=== PATIENT | male | born 1995 | race Caucasian/White ===

== ENCOUNTER 2017-03-23 11:16 | Emergency (ER) | payer MEDICAID | END 2017-03-23 21:26 | DX: F32.9 Major depressive disorder, single episode, unspecified (principal); R45.851 Suicidal ideations; R45.850 Homicidal ideations ==

== ENCOUNTER 2017-07-20 22:38 | Emergency (ER) | payer MEDICAID | END 2017-07-20 23:00 | disposition left against medical advice (07) | LOC: ED 22:38 | DX: Z53.21 Procedure and treatment not carried out due to patient leaving prior to being seen by health care provider (principal) | CPT/HCPCS: 96372; 99284 ==

== ENCOUNTER 2017-08-24 02:04 | Emergency (ER) | payer MEDICAID ==
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
[2017-08-24 02:49] LABS: BASOPHILS % (AUTO) 0.8 %; EOSINOPHILS % (AUTO) 0.9 %; HCT - HEMATOCRIT 45.4 % (42.0-52.0); HGB - HEMOGLOBIN 15.5 g/dL (14.0-18.0); LYMPHOCYTES % (AUTO) 48.3 %; MEAN CORPUSCULAR HGB CONC 34.1 g/dL (32.0-36.0); MEAN PLATELET VOLUME 8.9 fL (7.4-11.4); MONOCYTES % (AUTO) 7.1 %; NEUTROPHILS % (AUTO) 42.9 %; RED BLOOD COUNT 4.99 10^6/uL (4.70-6.10); RED CELL DISTRIBUTION WIDTH 12.7 % (12.0-15.0); UNCORRECTED WHITE BLOOD COUNT 11.2 x10^3/uL; WHITE BLOOD COUNT 11.2 x10^3/uL (4.8-10.8)
[2017-08-24 03:04] LABS: ALBUMIN/GLOBULIN RATIO 1.3 (1.0-2.2); BILIRUBIN,TOTAL 0.5 mg/dL (0.2-1.0); BUN - BLOOD UREA NITROGEN 17 mg/dL (6-20); CALCIUM 9.3 mg/dL (8.5-10.3); CARBON DIOXIDE - CO2 22 mmol/L (21-32); CHLORIDE 106 mmol/L (101-111); CREATININE 0.8 mg/dL (0.6-1.2); GFR - MDRD 122 (>89); GLUCOSE 105 mg/dL (70-100); LIPASE 29 U/L (22-51); POTASSIUM 3.6 mmol/L (3.5-5.0); SALICYLATE < 6.0 mg/dL; SODIUM 140 mmol/L (135-145); TOTAL PROTEIN 8.5 g/dL (6.7-8.2)
[2017-08-24 03:05] LABS: ACETAMINOPHEN < 10 ug/mL (10-30)
[2017-08-24 03:13] LABS: BAND NEUTROPHILS % (MANUAL) 9 %; BASOPHILS % (MANUAL) 1 %; EOSINOPHILS % (MANUAL) 2 %; LYMPHOCYTES % (MANUAL) 19 %; NEUTROPHILS % (MANUAL) 40 %; NP AUTO DIFFERENTIAL? YES; NP MAN DIFFERENTIAL? NO; PLATELET ESTIMATE, MANUAL NORMAL (130-450,000) (NORMAL); TOTAL CELLS COUNTED 100
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
[2017-08-24] MEDS ORDERED: LORazepam 0.5 MG TABLET PO STA (09:04)
[2017-08-24] MEDS ORDERED: LORazepam 0.5 MG TABLET ONE (09:10)
[2017-08-24 10:39] VITALS: BP 126/77
== END 2017-08-24 11:29 | disposition left against medical advice (07) ==
LOC: ED 02:04
DX: R45.851 Suicidal ideations (principal); F32.9 Major depressive disorder, single episode, unspecified
CPT/HCPCS: 36415; 80053; 80306; 80307; 80320; 80329; 83690; 84443; 85025; 99283; 99285; A9270

== ENCOUNTER 2018-05-09 22:41 | Outpatient (CLI) | payer MEDICAID, OTHER | END 2018-05-09 22:42 | disposition home or self-care (01) | LOC: LAB 22:41 | PROVIDERS: ATTEND Pathology Blood Banking & Transfusion Medicine | DX: Z01.89 Encounter for other specified special examinations (principal) | CPT/HCPCS: 36415 ==

== ENCOUNTER 2018-07-30 15:03 | Emergency (ER) | payer MEDICAID ==
[2018-07-30 15:20] VITALS: BP 102/68
[2018-07-30] MEDS ORDERED: HYDROcod/ACETAM 5/325 MG TABLET PO STA (15:58)
--- NOTE | 2018-07-30 16:00 | ED Physician Documentation ---
PD HPI HEENT - Stated complaint Stated Complaint: TOOTH PX - Chief complaint Chief Complaint: Heent - History obtained from History obtained from: Patient - History of Present Illness Timing - onset: Other (Progressively painful dental cavity from a right mandibular molar for the last few months. No recent dental appointment but has an upcoming appointment but it is not for some time. No fevers but he does have a headache with it and facial pain.) Review of Systems Constitutional: denies: Fever, Chills GI: denies: Abdominal Pain, Nausea, Vomiting : reports: Reviewed and negative PD PAST MEDICAL HISTORY - Past Surgical History Past Surgical History: No - Present Medications Home Medications: Ambulatory Orders Medication Instructions Recorded Confirmed Amoxicillin 500 mg PO TID #30 capsule 07/30/18 Hydrocodone/Acetaminophen 1 - 2 each PO Q6H PRN #14 tablet 07/30/18 [Hydrocodon-Acetaminophen 5-325] Ibuprofen [Motrin] 800 mg PO Q8H PRN #30 tablet 07/30/18 - Allergies Allergies/Adverse Reactions: Allergies Allergy/AdvReac Type Severity Reaction Status Date / Time No Known Drug Allergies Allergy Verified 08/24/17 02:14 - Social History Does the pt smoke?: No Smoking Status: Never smoker Does the pt drink ETOH?: Yes Does the pt have substance abuse?: Yes - Immunizations Immunizations are current?: Yes PD ED PE NORMAL - Vitals Vital signs reviewed: Yes - General General: Alert and oriented X 3, No acute distress - HEENT HEENT: Other (There is a moderate cavity from the first mandibular molar on the anterior surface. It is tender but there is no facial swelling, trismus, or sublingual edema.) - Neck Neck: Supple, no meningeal sign, No bony TTP - Neuro Neuro: Alert and oriented X 3, Normal speech Results - Vitals Vitals: Vital Signs - 24 hr 07/30/18 15:15 Temperature 36.7 C Heart Rate 78 Respiratory 16 Rate Blood Pressure 102/68 O2 Saturation 98 Oxygen O2 Source Room air PD MEDICAL DECISION MAKING - Sepsis Event Vital Signs: Vital Signs - 24 hr 07/30/18 15:15 Temperature 36.7 C Heart Rate 78 Respiratory 16 Rate Blood Pressure 102/68 O2 Saturation 98 Oxygen O2 Source Room air Departure - Departure Disposition: 01 Home, Self Care Clinical Impression: Pain due to dental caries Condition: Good Record reviewed to determine appropriate education?: Yes Instructions: ED Tooth Pain Prescriptions: Amoxicillin 500 mg PO TID #30 capsule Hydrocodone/Acetaminophen [Hydrocodon-Acetaminophen 5-325] 1 - 2 each PO Q6H PRN #14 tablet PRN Reason: pain Ibuprofen [Motrin] 800 mg PO Q8H PRN #30 tablet PRN Reason: PAIN &/OR FEVER Comments: It is very important that you follow-up with a dentist. When it comes to dental problems like yours, the emergency department can only offer a short- term solution to your long-term problem. A couple of low cost options for dental care include: [facility] in [place], calls [phone] for an appointment Or [facility] in [place], call [phone] for an appointment. Do not drink or drive while taking narcotic pain medication. Note that many narcotic pain relievers also contain Tylenol/acetaminophen. Please ensure that your total dose of acetaminophen from all sources does not exceed 3 g (3000 mg) per day. You may get constipated while on this medication. Take a stool softener such as Colace twice a day while you are on it. Also add an [id number] laxative such as senna or MiraLAX on any day that you do not have a bowel movement. If you received a narcotic pain medication or sedative while in the emergency department, do not drive for the next 24 hours.
== END 2018-07-30 16:17 | disposition home or self-care (01) ==
LOC: ED 15:03
DX: K02.9 Dental caries, unspecified (principal)
CPT/HCPCS: 99283; A9270

== ENCOUNTER 2018-12-19 05:50 | Emergency (ER) | payer MEDICAID ==
--- NOTE | 2018-12-19 05:59 | ED Physician Documentation ---
PD HPI HEENT - Stated complaint Stated Complaint: DENTAL PAIN - Chief complaint Chief Complaint: Heent - History obtained from History obtained from: Patient - History of Present Illness Timing - onset: How many days ago Timing - duration: Days Timing - details: Gradual onset, Still present, Waxing and waning Location: Tooth (right lower) Associated symptoms: No: Fever, Congestion, Swollen nodes Similar symptoms before: Diagnosis (has cavity with pain in the past. Had tried to get appt with Dentist, but was given one not until December. Finally is getting close to time of his appt but is having increased pain of it again.) Review of Systems Constitutional: denies: Fever, Chills, Myalgias Nose: denies: Rhinorrhea / runny nose, Congestion Throat: reports: Dental pain / toothache. denies: Oral lesions / sores, Sore throat Respiratory: denies: Cough PD PAST MEDICAL HISTORY - Past Medical History Past Medical History: No - Past Surgical History Past Surgical History: No - Present Medications Home Medications: Ambulatory Orders Medication Instructions Recorded Confirmed Ondansetron Odt [Zofran] 4 mg TL Q6H PRN #10 tablet 12/19/18 RX: Doxycycline Hyclate 100 mg PO BID #14 capsule 12/19/18 RX: Naproxen 375 mg PO BID #20 tablet 12/19/18 RX: Tramadol HCl 50 mg PO Q6H PRN #15 tablet 12/19/18 - Allergies Allergies/Adverse Reactions: Allergies Allergy/AdvReac Type Severity Reaction Status Date / Time No Known Drug Allergies Allergy Verified 12/19/18 05:55 - Social History Does the pt smoke?: No Smoking Status: Never smoker Does the pt drink ETOH?: Yes Does the pt have substance abuse?: Yes - Immunizations Immunizations are current?: Yes - POLST Patient has POLST: No PD ED PE NORMAL - Vitals Vital signs reviewed: Yes - General General: Alert and oriented X 3, No acute distress, Well developed/nourished - HEENT HEENT: Ears normal, Pharynx benign. No: Dentition benign (notable large cavity right lower tooth, with cup shape defect to it. Amenable to Cavit, and I placed some in it. Slight swelling of the gumline. No fluctuance nor drainage. ) - Neck Neck: Supple, no meningeal sign, No adenopathy Results - Vitals Vitals: Vital Signs - 24 hr 12/19/18 05:50 Temperature 36.7 C Heart Rate 66 Respiratory 18 Rate Blood Pressure 141/86 H O2 Saturation 100 Oxygen O2 Source Room air PD MEDICAL DECISION MAKING - ED course Complexity details: considered differential, d/w patient Departure - Departure Disposition: 01 Home, Self Care Clinical Impression: Pain due to dental caries Condition: Stable Record reviewed to determine appropriate education?: Yes Instructions: ED Tooth Pain Prescriptions: RX: Doxycycline Hyclate 100 mg PO BID #14 capsule RX: Naproxen 375 mg PO BID #20 tablet Ondansetron Odt [Zofran] 4 mg TL Q6H PRN #10 tablet PRN Reason: Nausea / Vomiting RX: Tramadol HCl 50 mg PO Q6H PRN #15 tablet PRN Reason: Pain Comments: No chewing on that side. Try to leave the temporary filling in place. Naproxen anti-inflammatory twice daily with food. Doxycycline antibiotic as directed. Add tramadol if needed for pain. Use ondansetron if needed for nausea. Follow- up with a dentist in a week as planned. Discharge Date/Time: 12/19/18 06:46
[2018-12-19 06:02] VITALS: BP 141/86
[2018-12-19] MEDS ORDERED: DOXYCYCLINE 100 MG TABLET PO STA (06:25)
[2018-12-19] MEDS ORDERED: ONDANSETRON ODT 4 MG TABLET TL STA (06:25)
[2018-12-19] MEDS ORDERED: traMADol 50 MG TABLET PO STA (06:25)
[2018-12-19] MEDS ORDERED: NAPROXEN 250 MG TABLET PO STA (06:25)
== END 2018-12-19 06:46 | disposition home or self-care (01) ==
LOC: ED 05:50
DX: K02.9 Dental caries, unspecified (principal)
CPT/HCPCS: 99283; A9270; Q0162

== ENCOUNTER 2018-12-28 06:15 | Emergency (ER) | payer MEDICAID ==
[2018-12-28 06:23] VITALS: BP 146/76
--- NOTE | 2018-12-28 06:25 | ED Physician Documentation ---
PD HPI SKIN - Stated complaint Stated Complaint: RASH - Chief complaint Chief Complaint: Wound - History obtained from History obtained from: Patient - History of Present Illness Timing - onset: How many weeks ago (2-3) Timing - duration: Weeks Timing - details: Gradual onset Pain level max: 0 Pain level now: 0 Location: RUE, LUE, Other (proximal thighs) Associated symptoms: No: Fever, Myalgias, Joint pain, Headache, Facial swelling, Dyspnea, Abd pain, N/V/D, Urinary sx Contributing factors: Unknown Similar symptoms before: Has not had sx before Recently seen: Not recently seen Review of Systems Constitutional: denies: Fever Skin: reports: Rash PD PAST MEDICAL HISTORY - Past Medical History Past Medical History: No - Past Surgical History Past Surgical History: No - Present Medications Home Medications: Ambulatory Orders Medication Instructions Recorded Confirmed Doxycycline Hyclate 100 mg PO BID #14 capsule 12/19/18 Naproxen 375 mg PO BID #20 tablet 12/19/18 Ondansetron Odt [Zofran] 4 mg TL Q6H PRN #10 tablet 12/19/18 Tramadol HCl 50 mg PO Q6H PRN #15 tablet 12/19/18 Triamcinolone 0.1% Cream [Kenalog 1 film TOP BID #1 tube 12/28/18 0.1% Cream] predniSONE [Prednisone] 40 mg PO DAILY 5 Days #10 tablet 12/28/18 - Allergies Allergies/Adverse Reactions: Allergies Allergy/AdvReac Type Severity Reaction Status Date / Time No Known Drug Allergies Allergy Verified 12/28/18 06:20 - Social History Does the pt smoke?: No Smoking Status: Never smoker Does the pt drink ETOH?: Yes Does the pt have substance abuse?: Yes - Immunizations Immunizations are current?: Yes - POLST Patient has POLST: No PD ED PE NORMAL - Vitals Vital signs reviewed: Yes - General General: Alert and oriented X 3, No acute distress, Well developed/nourished PD ED PE EXPANDED - Derm Derm: Rash (papular erythematous exanthem in clusters bilateral proximal medial upper arms with patch on either side of lateral chest wall in area that correlates with where the upper arm tocuhes the chest when adducted. fewer, scattered and less discrete lesions on bilateral proximal thighs) Results - Vitals Vitals: Vital Signs - 24 hr 12/28/18 06:17 Temperature 36.3 C L Heart Rate 87 Respiratory 16 Rate Blood Pressure 146/76 H O2 Saturation 99 Oxygen O2 Source Room air PD MEDICAL DECISION MAKING - ED course Complexity details: considered differential, d/w patient Departure - Departure Disposition: 01 Home, Self Care Clinical Impression: Rash Condition: Good Instructions: ED Dermatitis Non Specific Rash Prescriptions: predniSONE [Prednisone] 40 mg PO DAILY 5 Days #10 tablet Triamcinolone 0.1% Cream [Kenalog 0.1% Cream] 1 film TOP BID #1 tube Discharge Date/Time: 12/28/18 07:41
== END 2018-12-28 07:41 | disposition home or self-care (01) ==
LOC: ED 06:15
DX: R21 Rash and other nonspecific skin eruption (principal)
CPT/HCPCS: 99283

== ENCOUNTER 2019-04-14 10:23 | Emergency (ER) | payer MEDICAID ==
[2019-04-14 10:32] VITALS: BP 142/72
[2019-04-14] MEDS ORDERED: PENICILLIN VK 250 MG TABLET PO STA (10:52)
[2019-04-14] MEDS ORDERED: oxyCODONE 5 MG TABLET PO STA (10:52)
[2019-04-14] MEDS ORDERED: ONDANSETRON ODT 4 MG TABLET TL STA (10:52)
--- NOTE | 2019-04-14 10:58 | ED Physician Documentation ---
History of Present Illness - Stated complaint Stated Complaint: TOOTH PX - Chief complaint Chief Complaint: Heent - History obtained from History obtained from: Patient - History of Present Illness Timing: How many days ago (several) Pain level max: 10 Pain level now: 10 - Additonal information Additional information: 23-year-old male with right lower molar pain. This been ongoing for several weeks. He was told that he needs a root canal, but his dentist does not perform these. Is looking for another dentist. Increased pain over the past few days. Is not on antibiotics. No fevers. Worse with eating. Nothing makes it better. Review of Systems Constitutional: denies: Fever, Chills Respiratory: denies: Cough GI: denies: Vomiting Skin: denies: Rash PD PAST MEDICAL HISTORY - Past Medical History Past Medical History: No - Past Surgical History Past Surgical History: No - Present Medications Home Medications: Ambulatory Orders Medication Instructions Recorded Confirmed Ondansetron Odt [Zofran] 4 mg TL Q6H PRN #10 tablet 04/14/19 Oxycodone HCl/Acetaminophen 1 - 2 each PO Q6H PRN #14 tablet 04/14/19 [Percocet 5-325 mg Tablet] Penicillin V Potassium 500 mg PO Q6HR #40 tablet 04/14/19 - Allergies Allergies/Adverse Reactions: Allergies Allergy/AdvReac Type Severity Reaction Status Date / Time No Known Drug Allergies Allergy Verified 04/14/19 10:29 - Social History Does the pt smoke?: No Smoking Status: Never smoker Does the pt drink ETOH?: Yes Does the pt have substance abuse?: Yes - Immunizations Immunizations are current?: Yes - POLST Patient has POLST: No PD ED PE NORMAL - Vitals Vital signs reviewed: Yes - General General: Alert and oriented X 3, No acute distress, Well developed/nourished - HEENT HEENT: PERRL, Ears normal, Moist mucous membranes, Other (R lower molar - TTP, no drainable abscess. no ludwigs. no facial cellulitis. ) - Neck Neck: Supple, no meningeal sign - Cardiac Cardiac: RRR - Respiratory Respiratory: No respiratory distress, Clear bilaterally - Abdomen Abdomen: Soft, Non tender, Non distended - Derm Derm: Warm and dry - Neuro Neuro: Alert and oriented X 3 - Psych Psych: Normal mood, Normal affect Results - Vitals Vitals: Vital Signs - 24 hr 04/14/19 10:28 Temperature 36.5 C Heart Rate 53 L Respiratory 14 Rate Blood Pressure 142/72 H O2 Saturation 99 Oxygen O2 Source Room air PD MEDICAL DECISION MAKING - ED course Complexity details: considered differential, d/w patient ED course: 23-year-old male with a dental infection. No abscess. Will place on antibiotics and pain meds. We will follow-up with his dentist for further care. Patient counseled regarding signs and symptoms for which I believe and urgent re-evaluation would be necessary. Patient with good understanding of and agreement to plan and is comfortable going home at this time This document was made in part using voice recognition software. While efforts are made to proofread this document, sound alike and grammatical errors may occur. Departure - Departure Disposition: 01 Home, Self Care Clinical Impression: Pain due to dental caries Condition: Good Instructions: ED Tooth Pain Follow-Up: your,doctor in 1 week [Other] Prescriptions: Penicillin V Potassium 500 mg PO Q6HR #40 tablet Ondansetron Odt [Zofran] 4 mg TL Q6H PRN #10 tablet PRN Reason: Nausea / Vomiting Oxycodone HCl/Acetaminophen [Percocet 5-325 mg Tablet] 1 - 2 each PO Q6H PRN #14 tablet PRN Reason: pain Comments: Return if you worsen. Take all antibiotics until gone. Do not drink alcohol or drive while on narcotic pain medicine. Note that many narcotic pain relievers also contain tylenol/acetaminophen. Please ensure that your total dose of acetaminophen from all sources does not exceed 3 grams (3000mg) per day. You may constipated on this medication, take a stool softener such as "Colace" twice a day while you are on it. Also recommend a ycju-qxo-abrqraq laxative such as senna or MiraLAX any day that you do not have a bowel movement. If you received narcotic pain medication in the emergency department, do not drive or operate machinery for the next 24 hours. Discharge Date/Time: 04/14/19 11:05
== END 2019-04-14 11:05 | disposition home or self-care (01) ==
LOC: ED 10:23
DX: K04.7 Periapical abscess without sinus (principal); K02.9 Dental caries, unspecified
CPT/HCPCS: 99283; A9270; Q0162

== ENCOUNTER 2019-12-08 07:24 | Outpatient (CLI) | payer OTHER, MEDICAID | END 2019-12-08 07:25 | disposition home or self-care (01) | LOC: LAB 07:24 | PROVIDERS: ATTEND Pathology Blood Banking & Transfusion Medicine | DX: Z01.89 Encounter for other specified special examinations (principal) | CPT/HCPCS: 36415 ==

== ENCOUNTER 2020-10-25 10:17 | Emergency (ER) | payer MEDICAID, OTHER ==
[2020-10-25 10:26] VITALS: BP 148/86
--- NOTE | 2020-10-25 11:20 | XRAY Report ---
PROCEDURE: Knee 3 View RT INDICATIONS: fall off truck/Inability to bend knee r/t pain TECHNIQUE: 3 views of the right knee(s) were acquired. COMPARISON: None. FINDINGS: Bones: On the lateral view, there is a potential chip fracture seen along the anterior superior aspe ct of the tibial plateau. No additional fractures or dislocations. No suspicious bony lesions. Soft tissues: There is a small to moderate joint effusion. No suspicious soft tissue calcifications. IMPRESSION: Potential chip fracture seen on one image only. Moderate joint effusion. If clinically appropriate, please consider a follow-up knee CT for further evaluation. Reviewed by: Taco Hu MD on 10/25/2020 10:19 AM [facility] Approved by: Taco Hu MD on 10/25/2020 10:19 AM [facility] Station ID: [id number]
--- NOTE | 2020-10-25 16:44 | ED Physician Documentation ---
History of Present Illness - Stated complaint Stated Complaint: RT KNEE PX - Chief complaint Chief Complaint: Ext Problem - History obtained from History obtained from: Patient - Additonal information Additional information: 25-year-old, previously healthy presents with right knee pain, sudden onset after falling from a truck bed on Monday onto the knee, constant, aching, nonradiating, worse with movement. Patient is able to bear weight but noticed some swelling in the knee with bruising. No fevers, no sensory or motor deficits. No other symptoms Review of Systems Constitutional: denies: Fever, Chills Skin: reports: Abrasion (s) Musculoskeletal: reports: Extremity pain, Joint pain PD PAST MEDICAL HISTORY - Past Medical History Past Medical History: No - Past Surgical History Past Surgical History: No - Present Medications Home Medications: Ambulatory Orders Medication Instructions Recorded Confirmed Ondansetron Odt [Zofran] 4 mg TL Q6H PRN #10 tablet 04/14/19 Oxycodone HCl/Acetaminophen 1 - 2 each PO Q6H PRN #14 tablet 04/14/19 [Percocet 5-325 mg Tablet] Penicillin V Potassium 500 mg PO Q6HR #40 tablet 04/14/19 - Allergies Allergies/Adverse Reactions: Allergies Allergy/AdvReac Type Severity Reaction Status Date / Time No Known Drug Allergies Allergy Verified 04/14/19 10:29 - Social History Does the pt smoke?: No Smoking Status: Never smoker Does the pt drink ETOH?: Yes Does the pt have substance abuse?: Yes - Immunizations Immunizations are current?: Yes - POLST Patient has POLST: No PD ED PE NORMAL - Vitals Vital signs reviewed: Yes - General General: Alert and oriented X 3 - HEENT HEENT: Atraumatic, PERRL, EOMI - Derm Derm: Other (Ecchymosis and mild swelling to right knee) - Extremities Extremities: Other (Pain with range of motion of right knee. Full range of motion. sensory And motor intact distally. 2+ distal pulses) - Psych Psych: Normal mood, Normal affect Results - Vitals Vitals: Vital Signs - 24 hr 10/25/20 10:24 Temperature 36.7 C Heart Rate 70 Respiratory 16 Rate Blood Pressure 148/86 H O2 Saturation 99 Oxygen O2 Source Room air PD MEDICAL DECISION MAKING - ED course Complexity details: reviewed results, d/w patient ED course: 25-year-old man presents with right knee effusion and possible chip fracture. Knee immobilizer placed and he will follow up with orthopedics in 1 week. Crutches given. Return precautions given Departure - Departure Disposition: 01 Home, Self Care Clinical Impression: Knee effusion, right, Knee pain Condition: Stable Instructions: ED RICE Follow-Up: Adam Infante MD [Provider Admit Priv/Credential] - Comments: You have been seen in the emergency department for knee pain. It looks like there is some swelling in the knee on x-ray, but no break in the bone. It is important for you to follow-up with orthopedics in 1 week. Wear the knee immobilizer and use crutches until then. I will write a note for work.Return to the ED for any new or worsening symptoms. Discharge Date/Time: 10/25/20 11:55
== END 2020-10-25 11:55 | disposition home or self-care (01) ==
LOC: ED 10:17
DX: M25.461 Effusion, right knee (principal); W22.8XXA Striking against or struck by other objects, initial encounter
CPT/HCPCS: 99283; 99284

== ENCOUNTER 2021-02-11 09:14 | Emergency (ER) | payer OTHER ==
[2021-02-11 09:23] VITALS: BP 149/93
--- NOTE | 2021-02-11 09:31 | ED Physician Documentation ---
History of Present Illness - Stated complaint Stated Complaint: SWELLING FINGER - Chief complaint Chief Complaint: Ext Problem - History obtained from History obtained from: Patient - Additonal information Additional information: 25-year-old man presents with hangnail that has progressively worsened over the past couple days so that it was throbbing last night and now feels swollen. Denies other complaints. Normal sensation and movement. Review of Systems Constitutional: denies: Fever, Chills Skin: reports: Other (+finger swelling). denies: Laceration (s) Musculoskeletal: reports: Extremity pain. denies: Joint pain PD PAST MEDICAL HISTORY - Past Surgical History Past Surgical History: No - Present Medications Home Medications: Ambulatory Orders Medication Instructions Recorded Confirmed Ondansetron Odt [Zofran] 4 mg TL Q6H PRN #10 tablet 04/14/19 Oxycodone HCl/Acetaminophen 1 - 2 each PO Q6H PRN #14 tablet 04/14/19 [Percocet 5-325 mg Tablet] Penicillin V Potassium 500 mg PO Q6HR #40 tablet 04/14/19 cephALEXin [Keflex] 250 mg PO Q6H 3 Days #12 tab 02/11/21 - Allergies Allergies/Adverse Reactions: Allergies Allergy/AdvReac Type Severity Reaction Status Date / Time No Known Drug Allergies Allergy Verified 04/14/19 10:29 - Social History Does the pt smoke?: No Smoking Status: Never smoker Does the pt drink ETOH?: Yes Does the pt have substance abuse?: Yes - Immunizations Immunizations are current?: Yes - POLST Patient has POLST: No PD ED PE NORMAL - Vitals Vital signs reviewed: Yes - General General: Alert and oriented X 3, No acute distress - Derm Derm: Normal color, Other (+hangnail with surrounding mild erythema/swelling of 3rd digit L hand at lateral aspect without fluctuance) - Extremities Extremities: No deformity, Normal ROM s pain - Neuro Neuro: Alert and oriented X 3 Results - Vitals Vitals: Vital Signs - 24 hr 02/11/21 09:17 Temperature 36.7 C Heart Rate 60 Respiratory 17 Rate Blood Pressure 149/93 H O2 Saturation 96 Oxygen O2 Source Room air Procedures - Abscess I&D (location) Finger left Dorsal Preparation: Alcohol Incision: Incised with scalpel, Other (paronychia of L third finger with mild swelling. gently lifted flaps along lateral aspect of nailbed to allow drainage. mild discharge noted.) Other: Pt tolerated well, Dressing applied PD MEDICAL DECISION MAKING - ED course Complexity details: d/w patient ED course: 25-year-old man presents with beginnings of a mild paronychia. I incised with a 11 blade gently along the lateral aspect of the nailbed in order to create a tract and then advised him to do hot soaking with warm soapy water in order to resolve the issue. He was worried about infection continuing so I gave him a prescription for Keflex that he will take if he does not have resolution within a few days. Strict return precautions given. Patient will follow up with his primary doctor. Departure - Departure Disposition: Home, Self Care Clinical Impression: Paronychia Condition: Good Instructions: ED Fingernail Infec Prescriptions: cephALEXin [Keflex] 250 mg PO Q6H 3 Days #12 tab Comments: You were seen in the emergency department for mild hangnail infection, also called a paronychia. Please soak your finger in hot soapy water for at least an hour every other hour today and tomorrow. This should help the infection r esolve. Take ibuprofen 600 mg every 6 hours as needed for pain. Return to the emergency department if you have any new or worsening symptoms or other concerns. You can also go to urgent care. You can take the antibiotics as prescribed if you do not have improvement after doing warm soaks for 2 days.
== END 2021-02-11 09:48 | disposition home or self-care (01) ==
LOC: ED 09:14
DX: L03.012 Cellulitis of left finger (principal)
CPT/HCPCS: 26010

== ENCOUNTER 2021-02-12 15:18 | Emergency (ER) | payer OTHER ==
[2021-02-12] MEDS ORDERED: ROPIVACAINE 0.5% PF 20 ML AMPULE SUBQ STA (15:47)
[2021-02-12] MEDS ORDERED: HYDROcod/ACETAM 5/325 MG TABLET PO STA (15:47)
[2021-02-12] MEDS ORDERED: cephALEXin 250 MG CAPSULE PO STA (15:47)
[2021-02-12] MEDS ORDERED: SULFAMETH/TRIMETH DS 800/160 MG TABLET PO STA (15:47)
--- NOTE | 2021-02-12 17:16 | XRAY Report ---
PROCEDURE: Finger(s) LT INDICATIONS: L finger felon TECHNIQUE: AP hand, 2 views of the third finger(s) acquired. COMPARISON: None FINDINGS: Bones: No acute fracture or dislocation. No bony erosive changes are seen in third finger. There is deformity involving proximal to mid shaft of fourth middle phalanx with suggestion of mixed lytic and sclerotic lesion within posterior and medial aspect of proximal fourth middle phalangeal shaft and m easures approximately 9 x 6 x 7 mm in size. No overlying cortical disruption or periosteal reaction i s seen. No suspicious bony lesions. Soft tissues: No suspicious soft tissue calcifications. IMPRESSION: 1. No third finger fracture or dislocation. No bony erosive changes. 2. Incidentally noted of benign-appearing expansile lesion involving dorsal and medial cortex of four th middle phalangeal shaft and may represent benign process such as fibrous dysplasia or enchondroma. Radiographic follow-up is recommended. If indicated, nonemergent MR of finger can be done for furthe r evaluation of the fourth middle phalanx. Reviewed by: Jordi Reardon MD on 02/12/2021 5:14 PM PDT Approved by: Jordi Reardon MD on 02/12/2021 5:14 PM PDT Station ID: [id number]
--- NOTE | 2021-02-12 17:19 | ED Physician Documentation ---
History of Present Illness - Stated complaint Stated Complaint: LT FINGER INFECTION - Chief complaint Chief Complaint: Ext Problem - History obtained from History obtained from: Patient - History of Present Illness Timing: Today Pain level max: 7 Pain level now: 7 - Additonal information Additional information: 25-year-old male with pain to the left middle finger. Seen here yesterday and had an incision and drainage For a paronychia. States the pain is worse today, has not yet started the antibiotics. Worse with any palpation, better with rest. Review of Systems Constitutional: denies: Fever, Chills GI: denies: Vomiting Skin: denies: Rash Neurologic: denies: Headache PD PAST MEDICAL HISTORY - Past Medical History Past Medical History: Yes Cardiovascular: None Respiratory: None Neuro: None Endocrine/Autoimmune: None GI: GERD : None HEENT: None Psych: Anxiety Musculoskeletal: None Derm: None - Past Surgical History Past Surgical History: No - Present Medications Home Medications: Ambulatory Orders Medication Instructions Recorded Confirmed Ondansetron Odt [Zofran] 4 mg TL Q6H PRN #10 tablet 04/14/19 Oxycodone HCl/Acetaminophen 1 - 2 each PO Q6H PRN #14 tablet 04/14/19 [Percocet 5-325 mg Tablet] Penicillin V Potassium 500 mg PO Q6HR #40 tablet 04/14/19 cephALEXin [Keflex] 250 mg PO Q6H 3 Days #12 tab 02/11/21 Sulfamethox/Trimeth 800/160 1 each PO BID #14 tablet 02/12/21 [Bactrim Ds 800/160] cephALEXin [Keflex] 500 mg PO Q6H #20 cap 02/12/21 - Allergies Allergies/Adverse Reactions: Allergies Allergy/AdvReac Type Severity Reaction Status Date / Time hydrocodone AdvReac Emesis Verified 02/12/21 16:20 - Social History Does the pt smoke?: No Smoking Status: Never smoker Does the pt drink ETOH?: Yes Does the pt have substance abuse?: Yes - Immunizations Immunizations are current?: Yes - POLST Patient has POLST: No PD ED PE NORMAL - Vitals Vital signs reviewed: Yes - General General: Alert and oriented X 3, No acute distress - HEENT HEENT: Moist mucous membranes - Neck Neck: Supple, no meningeal sign - Cardiac Cardiac: RRR - Respiratory Respiratory: No respiratory distress, Clear bilaterally - Derm Derm: Warm and dry - Extremities Extremities: Other (Patient with pain and swelling to the left middle finger, distal phalanx, circumferential and especially over the pulp of the finger) - Neuro Neuro: Alert and oriented X 3 Results - Vitals Vitals: Vital Signs - 24 hr 02/12/21 02/12/21 15:32 17:28 Temperature 36.6 C 36.6 C Heart Rate 60 68 Respiratory 16 18 Rate Blood Pressure 160/100 H 133/79 H O2 Saturation 98 98 Oxygen O2 Source Room air PD MEDICAL DECISION MAKING - ED course Complexity details: considered differential, d/w patient, d/w investigations consultant ED course: Consulted Dr. Centeno from orthopedics, he came and performed a drainage of the felon in the emergency department. We will place the patient on oral antibiotics for home. Patient is well-appearing, nontoxic. Afebrile. Informed to leave the dressing in place until he is seen by orthopedics next week. Keep the wound dry. Patient counseled regarding signs and symptoms for which I believe and urgent re-evaluation would be necessary. Patient with good understanding of and agreement to plan and is comfortable going home at this time This document was made in part using voice recognition software. While efforts are made to proofread this document, sound alike and grammatical errors may occur. Departure - Departure Disposition: 01 Home, Self Care Clinical Impression: Brenda of finger Condition: Good Instructions: ED Fingernail Infec Follow-Up: [facility] [Provider Group] - Within 1 week Prescriptions: Sulfamethox/Trimeth 800/160 [Bactrim Ds 800/160] 1 each PO BID #14 tablet cephALEXin [Keflex] 500 mg PO Q6H #20 cap Comments: You will need to be seen in the orthopedic clinic next week. Please call on Monday for an appointment. This should be also likely see you on Monday or Monday. You saw Dr. Centeno today. Your [facility] were [facility] Discharge Date/Time: 02/12/21 17:34
[2021-02-12 17:29] VITALS: BP 133/79
--- NOTE | 2021-02-12 17:51 | CONSULTATION NOTE ---
DATE OF SERVICE: 02/12/2021 Physician: Oliverio Centeno MD REFERRING PHYSICIAN: Dr. Jim Cadena of the emergency room department. CHIEF COMPLAINT: "My left middle finger still hurts." HISTORY OF PRESENT ILLNESS: Patient is a 25-year-old male, left- handed, who apparently has had a painful tip to his left dominant middle finger for the last 3 days. Was seen in the emergency room last evening with a presumed paronychia. Had this fingertip lanced. Was started on antibiotics. The patient, however, did not fill out his antibiotic prescription. Has noted progressive swelling, redness and more pain in the tip of his finger since his emergency room visit. This prompted his reevaluation in the emergency room department this afternoon. Patient is in the habit of picking at the cuticles of his fingers, though in the past he has not had any fingertip infections. He is not a diabetic or has any other chronic medical conditions. PHYSICAL EXAM: Today patient has a swollen, mildly erythematous, and very tender tip of his left middle finger including the pulp space of the fingertip. There is no lymphangitis noted. Has full active range of motion of his DIP joint of the middle finger. After a digital block using long-acting Marcaine without epinephrine, we obtained adequate anesthesia to the tip of his finger. We then lanced the distal end of his fingertip with a [id number] incision over the ulnar aspect of the tip of his finger. Care was made to transect the septa in the pulp space of the distal tip of his finger. We did obtain a drop of purulence as we did our decompression. Patient tolerated the decompression well. We then inserted a corner of a 2 x 2 gauze to act as a wick into his incision. We then dressed the wound and applied a tube gauze dressing to the finger. Again, the patient tolerated the procedure well. ASSESSMENT: Left dominant middle fingertip infection - felon. PLAN: The patient will be continued on antibiotics Keflex and Bactrim for another 5-7 days. He will contact the orthopedic office in the early next week and will schedule a followup visit for a dressing change and a look at his finger at that time. TD: 02/12/2021 17:33 [facility]
== END 2021-02-12 17:34 | disposition home or self-care (01) ==
LOC: ED 15:18
DX: L03.012 Cellulitis of left finger (principal)
CPT/HCPCS: 26010; 73140; 96372; 99283; 99284; A9270

== ENCOUNTER 2021-02-16 11:47 | Emergency (ER) | payer OTHER ==
--- NOTE | 2021-02-16 12:38 | ED Physician Documentation ---
PD HPI WOUND RECHECK - Stated complaint Stated Complaint: PACKING REMOVAL - Chief complaint Chief Complaint: General - Histroy obtained from History obtained from: Patient - History of Present Illness Location: Left Uppper Extremity Timing - onset: How many days ago (4) Associated symptoms: Drainage, Pain. No: Fever, Redness, Swelling Similar symptoms before: Diagnosis (felon) Recently seen: Emergency Dept - Additional information Additional information: 25-year-old male who had a felon drained in the emergency department 4 days ago returns for packing removal. He has had a reduced swelling and reduced pain but continues to have pain.He was unable to be getting Review of Systems Constitutional: denies: Fever GI: denies: Vomiting Skin: denies: Rash PD PAST MEDICAL HISTORY - Past Medical History Cardiovascular: None Respiratory: None Neuro: None Endocrine/Autoimmune: None GI: GERD : None HEENT: None Psych: Anxiety Musculoskeletal: None Derm: None - Past Surgical History Past Surgical History: No - Present Medications Home Medications: Ambulatory Orders Medication Instructions Recorded Confirmed cephALEXin [Keflex] 250 mg PO Q6H 3 Days #12 tab 02/11/21 02/16/21 cephALEXin [Keflex] 500 mg PO Q6H #20 cap 02/12/21 02/16/21 Sulfamethoxazole/Trimethoprim 1 each PO BID 02/16/21 02/16/21 [Bactrim 400-80 mg Tablet] - Allergies Allergies/Adverse Reactions: Allergies Allergy/AdvReac Type Severity Reaction Status Date / Time hydrocodone AdvReac Emesis Verified 02/16/21 11:58 - Social History Does the pt smoke?: No Smoking Status: Never smoker Does the pt drink ETOH?: Yes Does the pt have substance abuse?: Yes - Immunizations Immunizations are current?: Yes - POLST Patient has POLST: No PD ED PE NORMAL - Vitals Vital signs reviewed: Yes (hypertensive ) - General General: Alert and oriented X 3, No acute distress, Well developed/nourished - HEENT HEENT: Atraumatic, PERRL, EOMI - Respiratory Respiratory: No respiratory distress - Derm Derm: Normal color, Warm and dry, No rash - Extremities Extremities: No deformity, Other (Dressings are removed from the left middle finger the finger is examined there is no significant swelling. Packing is removed from the radial aspect of the finger and there is drainage of pus and some pain. to the patient. The area does not appear swollen. It appears to be improving. ) - Psych Psych: Normal mood, Normal affect Results - Vitals Vitals: Vital Signs - 24 hr 02/16/21 11:58 Temperature 36.8 C Heart Rate 65 Respiratory 16 Rate Blood Pressure 141/78 H O2 Saturation 99 Oxygen O2 Source Room air PD MEDICAL DECISION MAKING - ED course Complexity details: considered differential, d/w patient ED course: 25-year-old male in 4 days s/p drainage of a felon appears to be progressing well. He will follow-up with orthopedics. Departure - Departure Disposition: Home, Self Care Clinical Impression: Felon of finger Condition: Stable Instructions: ED Abscess IandD Follow-Up: ROHAN BAUM, MSN, [employer]ER[employer] OPERATOR [Primary Care Provider] - Oliverio Centeno MD [Provider Admit Priv/Credential] - Comments: Today it appears your finger is improving the recommendation is to continue the antibiotic and change the dressing daily use a warm soak two times per day.
[2021-02-16 13:07] VITALS: BP 139/71
== END 2021-02-16 13:23 | disposition home or self-care (01) ==
LOC: ED 11:47
DX: L03.012 Cellulitis of left finger (principal); Z48.00 Encounter for change or removal of nonsurgical wound dressing
CPT/HCPCS: 99282